=== PATIENT | male | born 1955 | race Caucasian/White ===

== ENCOUNTER 2020-07-09 15:24 | Inpatient (IN) | payer MEDICARE, OTHER ==
[~2020-07-09] VITALS: Ht 182.9 cm; Wt 72.6 kg
[~2020-07-09 15:24] MED LIST: CLARITIN 10MG T10 MG PO; IPRAT-ALBUT 0.5-3 ML NEB; LOPRESSOR 25 MG25 MG PO; PANTOPRAZOLE SO40 MG PO
[2020-07-09 17:51] LABS: HEMOGLOBIN 14.7 gm/dl (14.0-17.5); RED BLOOD COUNT 4.7 M/UL (4.20-5.50); WHITE BLOOD COUNT 7.8 K/UL (4.5-11.0)
[2020-07-09 18:06] LABS: BUN/CREATININE RATIO 15 (0-10)
[2020-07-09] MEDS ORDERED: BEVESPI AEROS10.7 GM INH (22:02)
[2020-07-09] MEDS ORDERED: VENTOLIN HFA 66.7 GM INH (22:02)
[2020-07-11 04:54] LABS: HEMOGLOBIN 14.1 gm/dl (14.0-17.5); RED BLOOD COUNT 4.56 M/UL (4.20-5.50); WHITE BLOOD COUNT 9.1 K/UL (4.5-11.0)
[2020-07-12 03:57] LABS: HEMOGLOBIN 13.6 gm/dl (14.0-17.5); RED BLOOD COUNT 4.39 M/UL (4.20-5.50)
[2020-07-13 03:16] LABS: HEMOGLOBIN 13.7 gm/dl (14.0-17.5); RED BLOOD COUNT 4.51 M/UL (4.20-5.50); WHITE BLOOD COUNT 8.3 K/UL (4.5-11.0)
[2020-07-13 03:36] LABS: BUN/CREATININE RATIO 23 (0-10)
--- NOTE | 2020-07-13 15:30 | NUR ---
DR HOLDEN WITH CATH NURSE IN ROOM ALSO US PT GETTING OCTAVIO NOTED
[2020-07-13] MEDS ORDERED: LOPRESSOR 25 MG25 MG PO (16:16)
[2020-07-13] MEDS ORDERED: ATORVASTATIN CA20 MG PO (16:16)
[2020-07-13] MEDS ORDERED: FAMOTIDINE20 MG PO (16:16)
[2020-07-13] MEDS ORDERED: ASPIRIN EC81 MG PO (16:16)
[2020-07-13] MEDS ORDERED: AMLODIPINE BESYL5 MG PO (16:16)
[2020-07-13] MEDS ORDERED: IPRAT-ALBUT 0.5-3 ML NEB (16:32)
== END 2020-07-13 19:59 | disposition other institution (70) | DRG 65 ==
LOC: ER1 15:24 → M/S 20:00 → CDU 20:00 → M/S 20:00
PROVIDERS: Internal Medicine; Preventive Medicine Occupational Medicine; ADMIT Internal Medicine
DX: I63.443 Cerebral infarction due to embolism of bilateral cerebellar arteries (principal); Q21.1 Atrial septal defect; E44.0 Moderate protein-calorie malnutrition; G81.91 Hemiplegia, unspecified affecting right dominant side; E04.1 Nontoxic single thyroid nodule; I77.819 Aortic ectasia, unspecified site; F17.200 Nicotine dependence, unspecified, uncomplicated; J44.9 Chronic obstructive pulmonary disease, unspecified; R29.810 Facial weakness; Z20.822 Contact with and (suspected) exposure to COVID-19; I10 Essential (primary) hypertension; Z82.49 Family history of ischemic heart disease and other diseases of the circulatory system; Z90.89 Acquired absence of other organs; Z68.21 Body mass index [BMI] 21.0-21.9, adult; Z68.20 Body mass index [BMI] 20.0-20.9, adult
CPT/HCPCS: ECHO; 0240U; 36415; 36600; 70450; 70496; 70498; 70551; 71045; 80048; 80053; 80061; 82550; 82553; 82607; 82746; 82803; 83036; 83690; 83735; 83874; 83880; 84100; 84439; 84443; 84484; 85025; 85027; 85652; 86140; 92526; 92610; 93005; 93306; 93312; 93320; 94640; 94664; 94760; 96372; 96374; 97116-GP-CQ; 97162; 97165; 99285; G0008; G0378; J0360; J1650; J2250; J2310; J3010; J7040; Q9967

== ENCOUNTER → 2020-08-06 | Outpatient (CLI) | payer MEDICARE, OTHER ==
[~2020-08-06] MED LIST changes: +AMLODIPINE BESYL5 MG PO; +ASPIRIN EC81 MG PO; +ATORVASTATIN CA20 MG PO; +BEVESPI AEROS10.7 GM INH; +FAMOTIDINE20 MG PO; +VENTOLIN HFA 66.7 GM INH
== END ==
LOC: EXRD 13:52
DX: E04.1 Nontoxic single thyroid nodule (principal)
CPT/HCPCS: 76536